=== PATIENT | male | born 1980 | race Caucasian/White ===

== ENCOUNTER 2024-03-04 08:06 | Outpatient (AMB) | payer OTHER, SELFPAY ==
--- NOTE | 2024-03-04 08:08 | AM.OFFWIN_ITS ---
Intake Vital Signs 03/04/24 08:17 Height 5 ft 9 in Weight 202 lb BMI 29.8 BP 136/76 Blood Pressure Location Lt brachial Position Sitting Pulse 78 Pulse Source Pulse Oximeter Temp 98.3 F Temp Source Oral Pulse Oximetry (%) 98 Intake Visit Reasons: [employer] LT eye ?[place] [facility] or something in it Patient Tobacco Use Status: Current someday Tobacco user Allergies No Known Allergies Allergy (Verified 03/04/24 08:17) Do you need a note to return to daycare/school/sports/work: Yes HPI HPI Comments History of Present Illness Details Patient is a 43-year-old male complaining of dryness and redness and irritation in both eyes, the left eye is worse than the right. He denies any changes in his vision. He does state he wears contact lenses. He states he does not know what exactly happened but it started 2 days ago after he went swimming in his chlorinated pool. He has been trying to use lubricating eyedrops which helped but only temporarily. He also states he was watering the lawn and they want their lawn with well water which isn't very clean, they do not use it as drinking water it is just for the yd. He is wondering if something splashed from the well water into his eyes. He denies any discharge or his eyes being crusted shut in the morning or throughout the day. [facility] Social History Patient Tobacco Use Status: Current someday Tobacco user Review of Systems Const All systems reviewed & are unremarkable except as noted in HPI and below Physical Exam Vital Signs: Last Vital Signs Temp 98.3 F 03/04/24 08:17 Pulse 78 03/04/24 08:17 BP 136/76 03/04/24 08:17 Pulse Ox 98 03/04/24 08:17 BMI result Body Mass Index 29.8 Const General: cooperative, healthy appearing, comfortable, no acute distress and well developed Orientation/consciousness: patient oriented x3 Limitations: no limitations HEENT Head: Yes normal to inspection Eyes Visual Hill: normal visual hill by confrontation Alignment and Position: alignment normal Periorbital: periorbital findings normal Eyelids: Yes eyelids normal Conjunctivae: conjunctival abnormal bilateral conjunctival injection (Left> right); without discharge Corneas: corneas abnormal bilateral abrasion (left eye 0.5cm oval abrasion at 7 o'clock; right eye small 0.25cm linear abrasion at 5 o'clock ) and fluorescein used Pupils: Equal, round and reactive pupils present Neck Neck: Yes normal visual inspection and Yes full ROM Resp Effort & Inspection: normal respiratory effort and able to speak in complete sentences Skin General skin exam: no rashes or lesions noted Neuro General: patient oriented x3 Cranial nerves: Yes Equal, round and reactive pupils present Extrem General: Yes normal to inspection Assessment & Plan Assessment & Plan (1) Corneal abrasion of both eyes due to contact lens: Code(s): H18.823 - Corneal disorder due to contact lens, bilateral Plan: Recommended not using contact lens's until abrasions are healed. Advised if he has any changes in his vision to seek emergency ophthalmologic care. Medications: New ciprofloxacin HCl 0.3% put 1-2 drps in affected eye(s) every 2hr up to 8 times/day x2days; then 4 times/day x5days ophthalmic (eye) 5 mL 0RF Coding Level of Care Code New Pt Level 3 (18522) Diagnoses Corneal abrasion of both eyes due to contact lens H18.823
[2024-03-04 08:17] VITALS: BP 136/76; PULSE 78; TEMP 36.8; O2SAT 98; BMI 29.8
== END 2024-03-04 08:51 | disposition home or self-care (01) ==
PROVIDERS: PCP Internal Medicine; Visit Provider Physician Assistant
DX: H18.823 Corneal disorder due to contact lens, bilateral (principal)
CPT/HCPCS: 99203